=== PATIENT | male | born 1970 | race Caucasian/White ===

== ENCOUNTER 2016-11-29 12:37 | Emergency (ER) | payer BC ==
[~2016-11-29] VITALS: Ht 177.8 cm; Wt 115.7 kg
[2016-11-29 12:48] VITALS: BP 138/95; PULSE 76; RESP 18; TEMP 97.8; O2SAT 94
[2016-11-29] MEDS ORDERED: KETOROLAC TROMETHAMINE 30 MG VIAL IM ONE (13:00)
[2016-11-29] MEDS ORDERED: ONDANSETRON 4 MG ODT TAB PO ONE (13:00)
[2016-11-29] MEDS ORDERED: DIPHENHYDRAMINE INJ 50 MG/ML VIAL IM ONE (13:00)
[2016-11-29] MEDS ORDERED: LORazepam 1 MG TABLET PO ONE (14:00)
[2016-11-29] MEDS ORDERED: MORPHINE 4 MG/ML INJ. SYRINGE IM ONE (14:15)
[2016-11-29 15:01] VITALS: BP 141/90; PULSE 72; RESP 18; TEMP 97.8; O2SAT 97
== END 2016-11-29 15:00 | disposition home or self-care (01) ==
LOC: SED 12:37
DX: G43.909 Migraine, unspecified, not intractable, without status migrainosus (principal); F41.9 Anxiety disorder, unspecified
CPT/HCPCS: 96372; 99284; J1200; J1885; J2270; Q0162